=== PATIENT | female | born 1965 | race Caucasian/White ===

== ENCOUNTER → 2019-05-13 11:02 | Outpatient (CLI) | payer OTHER, SELFPAY ==
--- NOTE | 2019-05-13 11:06 | XR_ITS ---
XR humerus RT COMPARISON: Right humerus 05/11/2019 HISTORY: Follow-up fracture TECHNIQUE: AP and oblique views FINDINGS: Images were obtained through the attending arm cast or posterior splint. There has been improvement in the mild angulation at the fracture site compared with the original films. A 7 mm gap is still present along the spiral oblique fracture line. The soft tissues appear grossly normal. IMPRESSION: Spiral oblique fracture proximal shaft with interval improvement in the mild angulation since the original films
== END ==
PROVIDERS: PCP Pediatrics; Visit Provider Orthopaedic Surgery
DX: S42.309A Unspecified fracture of shaft of humerus, unspecified arm, initial encounter for closed fracture (principal)
CPT/HCPCS: 73060

== ENCOUNTER → 2019-05-20 13:32 | Outpatient (CLI) | payer OTHER, SELFPAY ==
--- NOTE | 2019-05-20 13:36 | XR_ITS ---
XR humerus RT CLINICAL INDICATION: ITS.REASON: humerus fracture ORDERING PHYSICIAN: Dianne Monterroso MD PATIENT AGE: 53 years Comparison: 05/13/2019. FINDINGS: There appears to be some less separation of the mid shaft left humeral fracture however this study shows lateral mild angulation. There is no callus formation. The remainder of the exam is stable. IMPRESSION: Mid shaft right humeral fracture is somewhat less however there is mild lateral angulation. No callus formation.
== END ==
PROVIDERS: PCP Pediatrics; Visit Provider Orthopaedic Surgery
DX: S42.301A Unspecified fracture of shaft of humerus, right arm, initial encounter for closed fracture (principal)
CPT/HCPCS: 73060

== ENCOUNTER → 2019-05-30 10:25 | Outpatient (CLI) | payer OTHER, SELFPAY ==
--- NOTE | 2019-05-30 10:32 | XR_ITS ---
XR humerus RT CLINICAL INDICATION: Follow-up fracture ITS.REASON: rt humerus fx ORDERING PHYSICIAN: Dianne Monterroso MD PATIENT AGE: 53 years Comparison: 05/20/2019 FINDINGS: Comminuted fracture once again noted involving the junction of the proximal midshaft of the right humerus with an oblique nondisplaced fracture component involving the proximal shaft of the humerus. There is mild dorsal angulation and mild dorsal displacement of the distal fracture fragment. IMPRESSION: No change comminuted mid/proximal humeral fracture with mild dorsal displacement and angulation of the distal fracture fragment
--- NOTE | 2019-05-30 11:46 | XR_ITS ---
XR humerus RT CLINICAL INDICATION: Follow-up splint manipulation, fracture, pain ITS.REASON: Rt humerus fracture ORDERING PHYSICIAN: Dianne Monterroso MD PATIENT AGE: 53 years FINDINGS: Mildly displaced oblique fracture once again noted involving the proximal to mid shaft of the right humerus with spiral component extending into the proximal humerus unchanged. There is mild lateral displacement of the distal fracture fragment with no significant callus formation. There remains medial angulation of the distal fracture fragment IMPRESSION: No change mid to proximal mildly displaced humeral fracture
== END ==
PROVIDERS: PCP Pediatrics; Visit Provider Orthopaedic Surgery
DX: S42.301A Unspecified fracture of shaft of humerus, right arm, initial encounter for closed fracture (principal)
CPT/HCPCS: 73060

== ENCOUNTER → 2019-06-06 09:54 | Outpatient (CLI) | payer OTHER, SELFPAY ==
--- NOTE | 2019-06-06 10:01 | XR_ITS ---
XR humerus RT CLINICAL INDICATION: Follow-up fracture ITS.REASON: Rt humerus fracture ORDERING PHYSICIAN: Holden Calix MD PATIENT AGE: 53 years Comparison: 05/30/2019 FINDINGS: Healing mid shaft humeral fracture once again noted. The fracture lines appear somewhat less apparent with overlying callus formation. There is minimal medial angulation of the distal fracture fragment. There is decreased displacement. Fracture also involves the proximal shaft of the humerus unchanged and nondisplaced. IMPRESSION: Healing proximal and mid shaft right humeral fracture
== END ==
PROVIDERS: PCP Pediatrics; Visit Provider Orthopaedic Surgery
DX: S42.301A Unspecified fracture of shaft of humerus, right arm, initial encounter for closed fracture (principal)
CPT/HCPCS: 73060

== ENCOUNTER → 2019-06-20 09:58 | Outpatient (CLI) | payer OTHER, SELFPAY ==
--- NOTE | 2019-06-20 10:01 | XR_ITS ---
PROCEDURE: XR HUMERUS RT CLINICAL INDICATION: humerus fracture The follow-up fracture COMPARISON: from 06/06/2019 XR HUMERUS RT from 06/20/2019 FINDINGS: There is a healing fracture involving the proximal to mid shaft of the right humerus with mild medial angulation of the distal fracture fragment. There is mild lateral displacement of the distal fracture fragment by approximately 1 cm. Other findings:None. IMPRESSION: No change healing mid to proximal shaft humeral fracture with mild lateral displacement of the distal fracture fragment Dictated by: Cb Lane MD 06/20/2019 12:03 Signed by: <Electronically signed by Cb Lane MD in [place]> 06/20/2019 12:03
--- NOTE | 2019-06-20 10:43 | XR_ITS ---
PROCEDURE: XR HUMERUS RT CLINICAL INDICATION: humerus fracture Follow-up fracture COMPARISON: Humerus R from 05/11/2019 FINDINGS: There is a healing mid shaft humeral fracture with mild displacement of the distal fracture fragment by 8 mm. There is mild medial angulation of the distal fracture fragment. Mild inferior subluxation of the humeral head. Developing callus formation is noted Other findings:None. IMPRESSION: Healing mid to proximal humeral shaft fracture with mild displacement Dictated by: Cb Lane MD 06/20/2019 11:13 Signed by: <Electronically signed by Cb Lane MD in [place]> 06/20/2019 11:13
== END ==
PROVIDERS: PCP Pediatrics; Visit Provider Orthopaedic Surgery
DX: S42.301A Unspecified fracture of shaft of humerus, right arm, initial encounter for closed fracture (principal)
CPT/HCPCS: 73060

== ENCOUNTER → 2019-06-30 09:46 | Outpatient (CLI) | payer OTHER, SELFPAY ==
--- NOTE | 2019-06-30 09:50 | XR_ITS ---
PROCEDURE: XR HUMERUS RT CLINICAL INDICATION: Rt humerus FX Follow-up fracture COMPARISON: XR HUMERUS RT from 06/20/2019 FINDINGS: Healing mildly displaced fracture is once again noted involving the junction of the proximal mid 3rd shaft of the humerus with minimal medial angulation and mild lateral displacement of the distal fracture fragment. IMPRESSION: No change healing fracture of the right humerus Dictated by: Cb Lane MD 06/30/2019 11:09 Electronically signed by Cb Lane MD in [place] 06/30/2019 11:09
== END ==
PROVIDERS: PCP Pediatrics; Visit Provider Orthopaedic Surgery
DX: S42.301A Unspecified fracture of shaft of humerus, right arm, initial encounter for closed fracture (principal)
CPT/HCPCS: 73060

== ENCOUNTER → 2019-07-18 09:39 | Outpatient (CLI) | payer OTHER, SELFPAY ==
--- NOTE | 2019-07-18 09:42 | XR_ITS ---
PROCEDURE: XR HUMERUS RT CLINICAL INDICATION: Humerus FX Follow-up fracture COMPARISON: Humerus R from 05/11/2019 XR HUMERUS RT from 06/20/2019 XR HUMERUS RT from 06/20/2019 XR HUMERUS RT from 06/30/2019 FINDINGS: Healing mid shaft humeral fracture is once again noted with increasing callus formation.. The lateral displacement has improved compared to the previous study. There remains some minimal medial angulation of the distal fracture fragment. IMPRESSION: Healing right midshaft humeral fracture Dictated by: Cb Lane MD 07/18/2019 11:37 Electronically signed by Cb Lane MD in [place] 07/18/2019 11:37
== END ==
PROVIDERS: PCP Pediatrics; Visit Provider Orthopaedic Surgery
DX: S42.301A Unspecified fracture of shaft of humerus, right arm, initial encounter for closed fracture (principal)
CPT/HCPCS: 73060

== ENCOUNTER → 2019-08-19 08:41 | Outpatient (CLI) | payer OTHER, SELFPAY ==
--- NOTE | 2019-08-19 08:45 | XR_ITS ---
PROCEDURE: XR HUMERUS RT CLINICAL INDICATION: Humerus FX FU Follow-up fracture COMPARISON: XR HUMERUS RT from 06/20/2019 XR HUMERUS RT from 06/20/2019 XR HUMERUS RT from 06/30/2019 XR HUMERUS RT from 07/18/2019 FINDINGS: There is a healing mid shaft humeral fracture with abundant callus formation. The fracture is nondisplaced and not significantly changed. There is minimal medial angulation of the distal fracture fragment Other findings:None. IMPRESSION: Healing mid shaft humeral fracture Dictated by: Cb Lane MD 08/19/2019 13:35 Electronically signed by Cb Lane MD in [place] 08/19/2019 13:35
== END ==
PROVIDERS: PCP Pediatrics; Visit Provider Orthopaedic Surgery
DX: S42.341A Displaced spiral fracture of shaft of humerus, right arm, initial encounter for closed fracture (principal)
CPT/HCPCS: 73060

== ENCOUNTER → 2019-09-19 09:06 | Outpatient (CLI) | payer OTHER, SELFPAY ==
--- NOTE | 2019-09-19 09:15 | XR_ITS ---
PROCEDURE: XR HUMERUS RT CLINICAL INDICATION: Humerus FX FU Follow-up fracture COMPARISON: XR HUMERUS RT from 06/20/2019 XR HUMERUS RT from 06/30/2019 XR HUMERUS RT from 07/18/2019 XR HUMERUS RT from 08/19/2019 FINDINGS: There is a healing mid shaft humerus fracture with mild medial in dorsal displacement and angulation of the distal fracture fragment with increasing callus formation. Medial displacement in angulation appears somewhat worse than compared to the previous exam IMPRESSION: Healing right midshaft humeral fracture with slight increased medial displacement and angulation which could be projectional. Continued follow-up recommended Dictated by: Cb Lane MD 09/19/2019 13:29 Electronically signed by Cb Lane MD in [place] 09/19/2019 13:29
== END ==
PROVIDERS: PCP Pediatrics; Visit Provider Orthopaedic Surgery
DX: S42.301A Unspecified fracture of shaft of humerus, right arm, initial encounter for closed fracture (principal)
CPT/HCPCS: 73060

== ENCOUNTER → 2020-04-10 09:01 | Outpatient (POV) | payer SELFPAY | PROVIDERS: PCP Pediatrics; Visit Provider Physician Assistant | DX: Z00.00 Encounter for general adult medical examination without abnormal findings (principal) ==